=== PATIENT | female | born 1985 | race Caucasian/White ===

== ENCOUNTER 2017-04-13 17:27 | Emergency (ER) | payer BC ==
[2017-04-13 17:34] VITALS: BP 147/88
--- NOTE | 2017-04-13 18:27 | UC ---
Complaint Female HPI - History Of Current Complaint Chief Complaint: [facility]CGU Stated Complaint: BLADDER PAIN Time Seen by Provider: 04/13/17 18:24 Hx Last Menstrual Period: 04/01/17 Pain Intensity: 5 - Allergies/Home Medications Allergies/Adverse Reactions: Allergies Allergy/AdvReac Type Severity Reaction Status Date / Time No Known Allergies Allergy Verified 04/13/17 17:34 Home Medications: Home Medications NK [No Home Medications Reported] 04/13/17 [History Confirmed 04/13/17] PMH/Surg Hx/FS Hx/Imm Hx - Surgical History Surgical History: None - Family History Known Family History: Positive: Cardiac Disease - mother - Social History Alcohol Use: None Substance Use Type: None Smoking Status (MU): Light Every Day Tobacco Smoker Amount Used/How Often: 1/2 ppd Have You Smoked in the Last Year: Yes Household Exposure Type: Cigarettes - Immunization History Most Recent Influenza Vaccination: not this season Most Recent Tetanus Shot: unsure Physical Exam Vital Signs: Initial Vital Signs Temp 98.9 F 04/13/17 17:31 Pulse 86 04/13/17 17:31 Resp 12 04/13/17 17:31 BP 147/88 04/13/17 17:31 Pulse Ox 100 04/13/17 17:31 Discharge - Discharge Plan Referrals: Eloy Sinclair MD [Primary Care Provider] -
== END 2017-04-13 18:50 | disposition home or self-care (01) ==
LOC: UCEAST 17:27
DX: R39.89 Other symptoms and signs involving the genitourinary system (principal); Z32.02 Encounter for pregnancy test, result negative
CPT/HCPCS: 81003; 84702; 99212; G0463

== ENCOUNTER 2017-05-11 12:07 | Emergency (ER) | payer BC ==
[2017-05-11 12:42] VITALS: BP 135/86
--- NOTE | 2017-05-11 13:29 | UC ---
Abdominal Pain Female HPI - HPI Summary HPI Summary: 2 WEEKS OF EPIGASTRIC AND RUQ PAIN AND NAUSEA. REPORTS REFLUX TYPE SYMPTOMS. CAN NOT LAY FLAT AFTER EATING. APPETITE IS DECREASED. HAS SOME RIGHT FLANK PAIN WELL. NO FEVER. NO URINARY SX. NO RASH. - History of Current Complaint Chief Complaint: UCAbdominalPain Stated Complaint: ABDOMINAL PAIN Time Seen by Provider: 05/11/17 12:48 Hx Obtained From: Patient Hx Last Menstrual Period: 04/25/17 Onset/Duration: Gradual Onset, Lasting Weeks, Still Present Timing: Constant Severity Initially: Moderate Severity Currently: Moderate Pain Intensity: 7 Pain Scale Used: 0-10 Numeric Location: Epigastric Radiates: No Character: Sharp Aggravating Factor(s): Nothing Alleviating Factor(s): Nothing Associated Signs and Symptoms: Positive: Back Pain, Decreased Appetite, Nausea. Negative: Fever, Constipation, Blood in Stool, Urinary Symptoms, Vomiting, Diarrhea Allergies/Adverse Reactions: Allergies Allergy/AdvReac Type Severity Reaction Status Date / Time No Known Allergies Allergy Verified 05/11/17 12:33 Home Medications: Home Medications Ibuprofen TAB* [Motrin TAB* 600 MG] 600 mg PO Q6H PRN 05/11/17 [History Confirmed 05/11/17] PMH/Surg Hx/FS Hx/Imm Hx Previously Healthy: Yes - Surgical History Surgical History: None - Family History Known Family History: Positive: Cardiac Disease - mother - Social History Alcohol Use: None Substance Use Type: None Smoking Status (MU): Light Every Day Tobacco Smoker Amount Used/How Often: 1/2 ppd Have You Smoked in the Last Year: Yes Household Exposure Type: Cigarettes - Immunization History Most Recent Influenza Vaccination: not this season Most Recent Tetanus Shot: unsure Review of Systems Constitutional: Negative Respiratory: Negative Cardiovascular: Negative Gastrointestinal: Abdominal Pain, Nausea Genitourinary: Negative All Other Systems Reviewed And Are Negative: Yes Physical Exam Triage Information Reviewed: Yes Appearance: Well-Appearing, Well-Nourished, Pain Distress - MILD Vital Signs: Initial Vital Signs Temp 99.5 F 05/11/17 12:34 Pulse 89 05/11/17 12:34 Resp 16 05/11/17 12:34 BP 135/86 05/11/17 12:34 Pulse Ox 100 05/11/17 12:34 Vital Signs Reviewed: Yes Eyes: Positive: Conjunctiva Clear ENT: Positive: Hearing grossly normal, Pharynx normal, TMs normal Neck: Positive: Supple, Nontender, No Lymphadenopathy Respiratory Exam: Normal Cardiovascular Exam: Normal Abdomen Description: Positive: Soft, Other: - TTP EPIGASTRIC. NOT TENDER RUP. NEG MURPHYS. Negative: CVA Tenderness (R), CVA Tenderness (L), Distended, Guarding Musculoskeletal: Positive: No Edema Neurological: Positive: Alert Psychological: Positive: Age Appropriate Behavior Skin: Negative: rashes Diagnostics - Laboratory Diagnostic Studies Completed/Ordered: URINE SP. GR. 1.005, 1+ KETONES Abd Pain Female Course/Dx - Course Course Of Treatment: DUE TO LIMITED RESOURCES HERE AT AND PROTRACTED COURSE OF SX PT OFFERED TRANSFER TO ED FOR FURTHER EVAL. PT DECLINES TRANSFER TO ED. ADVISED THAT SHE COULD BE RISKING WORSENING OF HER CONDITION THAT COULD POSE A THREAT TO HER LIFE, HEALTH AND MEDICAL SAFETY. SHE VERBALIZES UNDERSTANDING AND CONTINUES TO DECLINE TRANSFER. - Differential Dx/Diagnosis Provider Diagnoses: EPIGASTRIC ABDOMINAL PAIN, NOS Discharge - Discharge Plan Condition: Stable Disposition: HOME Prescriptions: Esomeprazole(NF) [NexIUM(NF)] 40 mg PO DAILY #30 cap Patient Education Materials: Gastroesophageal Reflux Disease (ED), Abdominal Pain (ED) Referrals: Eloy Sinclair MD [Primary Care Provider] - 1 Week Additional Instructions: ABDOMINAL PAIN: There are many causes of abdominal pain. Pain can mean a serious problem requiring surgery (such as appendicitis), or an innocent problem which goes away on its own (such as a viral infection). Often, time must pass to determine the cause of pain. The physician does not feel that hospitalization is necessary, at present. Conditions may change, however, within the next 24 hours. GO TO THE ER WITHOUT FAIL IF ANY OF THE FOLLOWING OCCUR: 1) Pain which becomes more severe, steady, or becomes concentrated in one specific area. Also, pain which is more severe with movement or coughing. 2) Vomiting which persists or becomes more frequent. 3) Blood in the vomitus, urine, or bowel movements. Blood in the stool may have a tarry or black appearance. 4) Shaking chills or fever greater than 100 degrees F. 5) The abdomen becomes more distended or swollen. 6) Bowel movements cease. 7) Failure to improve as expected. TAKE THE REFLUX MEDICINE IN THE MORNING (IDEALLY AT LEAST 30 MINUTES BEFORE YOU EAT). EAT SLOWLY. STAY UPRIGHT AT LEAST 30 MINUTES AFTER EATING. EAT SMALLER, MORE FREQUENT MEALS OPPOSED TO LARGE INFREQUENT MEALS. AVOID POSSIBLE TRIGGER FOODS - GREASY, SPICY, ACIDIC FOODS. CAFFEINE, ALCOHOL.
== END 2017-05-11 13:28 | disposition home or self-care (01) ==
LOC: UCEAST 12:07
DX: R10.13 Epigastric pain (principal); Z32.02 Encounter for pregnancy test, result negative; F17.210 Nicotine dependence, cigarettes, uncomplicated
CPT/HCPCS: 81003; 84702; 99212; G0463